=== PATIENT | female | born 1995 ===

== ENCOUNTER 2017-04-26 10:57 | Inpatient (IN) ==
[2017-04-26] MEDS ORDERED: CITRIC ACID/SODIUM CITRATE 30 ML UDCUP PO ONE (11:19)
[2017-04-26] MEDS ORDERED: CLINDAMYCIN INJ 900 MG in PREMIX 1 EACH IV ONE (11:19)
[2017-04-26] MEDS ORDERED: FAMOTIDINE 20 MG/2 ML VIAL IV ONE (11:19)
[2017-04-26] MEDS: LACTATED RINGERS 1,000 ML IV SCH ×2 (11:35→13:42)
[2017-04-26 11:49] LABS: Basophils % 0.3 % (0.0-0.8); Eosinophils % 0.3 % (0.00-10.9); Hematocrit 31.4 VOL% (35.7-47.0); Hemoglobin 10.2 GM/DL (12.0-16.0); Immature Granulocytes % 1.7 %; Lymphocytes # 1.6 10*3/uL (1.4-4.0); Lymphocytes % 27.7 % (21.3-54.2); Mean Corpuscular HGB Conc 32.5 GM/DL (32-36); Mean Corpuscular Hemoglobin 26 PG (27-34); Mean Corpuscular Volume 78.5 FL (87-102); Mean Platelet Volume 9.7 FL (9.6-12.0); Monocytes # 0.6 10*3/uL (0.11-0.8); Monocytes % 10.1 % (1.7-12.7); Neutrophils # 3.5 10*3/uL (1.4-7.4); Neutrophils % 59.9 % (38.7-73.9); Platelet Count 299 T/CUMM (130-400); Red Cell Distribution Width 16.8 % (9.3-17.3); White Blood Count 5.8 T/CUMM (4-12)
[2017-04-26 12:22] LABS: Bilirubin,Total 0.5 MG/DL (0.2-1.0); Calcium 8.5 MG/DL (8.5-10.1); Osmolality,Calculated 272.7 MOS/KG (273-304); Potassium 3.6 MMOL/L (3.5-5.1); Total Protein 7.3 G/DL (6.4-8.3)
[2017-04-26] MEDS ORDERED: OXYTOCIN/LR 30 UNIT/1,000 ML BAG IV ONE (12:23)
[2017-04-26] MEDS ORDERED: OXYTOCIN 10 UNIT/ML VIAL IM ONE (12:23)
[2017-04-26 14:03] LABS: HIV Antigen/Antibody Result Nonreactive (Nonreactive); Hepatitis B Surface Ag Quant 0.44 Index; Hepatitis B Surface Ag Result Negative (Negative)
[2017-04-26 17:17] LABS: Cord Arterial Blood HCO3 21.3 MMOL/L
[2017-04-26 17:18] LABS: Cord Venous Blood HCO3 24.4 MMOL/L; Cord Venous Blood PCO2 43.9 MMHG; Cord Venous Blood PO2 13.8 MMHG
[2017-04-26] MEDS ORDERED: fentaNYL 100 MCG/2 ML VIAL ONE (17:31)
[2017-04-26] MEDS ORDERED: MORPHINE 10 MG/10 ML VIAL ONE (17:32)
[2017-04-26 17:46] LABS: Apearance,Urine CLEAR (Clear); Bilirubin,Urine Negative (Negative); Blood, Urine Negative (Negative); Glucose,Urine (UA) Negative (Negative); Ketones,Urine 20 mg/dL (Negative); Mucus,Urine Occasional /LPF (Occasional); Nitrite,Urine Negative (Negative); Protein,Urine 30 MG/DL; RBC,Urine 2 /HPF (0-4); Squamous Epithelial Cell,Urine Occasional /HPF (0-10); Urine Color Amber (Yellow); Urine Specific Gravity 1.024 (1.001-1.035); WBC,Urine 1 /HPF (0-6)
[2017-04-26] MEDS ORDERED: OXYTOCIN/LR 20 UNIT/1,000 ML BAG IV ONE ×2 (19:55→23:47)
[2017-04-26] MEDS ORDERED: SIMETHICONE CHEW 80 MG TABLET PO PRN (23:47)
[2017-04-26] MEDS ORDERED: RHO(D) IMMUNE GLOBULIN 300 MCG SYRINGE IM ONE (23:47)
[2017-04-26] MEDS ORDERED: LACTATED RINGERS 1,000 ML IV SCH (23:47)
[2017-04-26] MEDS ORDERED: ONDANSETRON 4 MG/2 ML VIAL IV PRN (23:47)
[2017-04-26] MEDS ORDERED: MAGNESIUM HYDROXIDE SUSP 30 ML UDCUP PO PRN (23:47)
[2017-04-26] MEDS ORDERED: IBUPROFEN 800 MG TABLET PO PRN (23:47)
[2017-04-26] MEDS ORDERED: ACETAMINOPHEN 325 MG TABLET PO PRN (23:47)
[2017-04-27] MEDS: ceFAZolin 1,000 MG in SYRINGE 1 EACH IV SCH ×2 (01:00→09:32)
[2017-04-27] MEDS: OSELTAMIVIR 75 MG CAPSULE PO SCH ×3 (03:24→20:00)
[2017-04-27 04:20] LABS: Basophils % 0.2 % (0.0-0.8); Eosinophils % 0.3 % (0.00-10.9); Hematocrit 26.9 VOL% (35.7-47.0); Hemoglobin 8.3 GM/DL (12.0-16.0); Immature Granulocytes % 1.1 %; Immature Granulocytes Absolute 0.07 #; Lymphocytes # 1.8 10*3/uL (1.4-4.0); Lymphocytes % 27.9 % (21.3-54.2); Mean Corpuscular HGB Conc 30.9 GM/DL (32-36); Mean Corpuscular Hemoglobin 25 PG (27-34); Mean Corpuscular Volume 80.5 FL (87-102); Mean Platelet Volume 9.6 FL (9.6-12.0); Monocytes # 0.6 10*3/uL (0.11-0.8); Monocytes % 8.6 % (1.7-12.7); Neutrophils % 61.9 % (38.7-73.9); Platelet Count 203 T/CUMM (130-400); Red Blood Count 3.34 MC/CUMM (3.8-5.5); Red Cell Distribution Width 16.6 % (9.3-17.3); White Blood Count 6.4 T/CUMM (4-12)
[2017-04-27] MEDS: DOCUSATE SODIUM 100 MG CAPSULE PO SCH ×3 (07:54→20:00)
[2017-04-27 08:07] VITALS: BP 109/48
[2017-04-27] MEDS: MULTIVITAMIN (PRENATAL) TABLET PO SCH (09:34)
[2017-04-27] MEDS: FERROUS SULFATE 325 MG TABLET PO SCH (20:00)
[2017-04-28] MEDS: DOCUSATE SODIUM 100 MG CAPSULE PO SCH (07:39)
[2017-04-28] MEDS: MULTIVITAMIN (PRENATAL) TABLET PO SCH (07:39)
[2017-04-28] MEDS: FERROUS SULFATE 325 MG TABLET PO SCH (07:39)
[2017-04-28] MEDS: OSELTAMIVIR 75 MG CAPSULE PO SCH (09:03)
[2017-04-28] MEDS ORDERED: DIPH/TET/ACEL PERT BOOSTER VACCINE 0.5 ML VIAL IM ONE (10:03)
[2017-04-28] MEDS ORDERED: MEASLES/MUMPS/RUBELLA VACCINE 0.5 ML VIAL SUBCUT ONE (10:04)
== END 2017-04-28 12:45 | disposition home or self-care (01) | DRG 766 ==
LOC: N.LDOUT 10:57 → N.LD 11:04 → N.OB 04-27 01:40
PROVIDERS: ADMIT Obstetrics & Gynecology; ATTEND Obstetrics & Gynecology
PROC: LDCSECT (ICD-10-PCS; 2017-04-26 16:00)

== ENCOUNTER 2019-07-05 23:15 | Inpatient (IN) ==
[2019-07-05] MEDS ORDERED: CITRIC ACID/SODIUM CITRATE 30 ML UDCUP PO PRN (23:25)
[2019-07-05] MEDS ORDERED: CLINDAMYCIN INJ 900 MG in PREMIX 1 EACH IV PRN (23:31)
[2019-07-05] MEDS ORDERED: FAMOTIDINE 20 MG/2 ML VIAL IV PRN (23:31)
[2019-07-05] MEDS ORDERED: OXYTOCIN 10 UNIT/ML VIAL IM PRN (23:35)
[2019-07-05 23:43] LABS: Basophils % 0.2 % (0.0-0.8); Eosinophils # 0.1 10*3/uL (0.0-0.87); Eosinophils % 0.6 % (0.00-10.9); Hematocrit 31.4 VOL% (35.7-47.0); Hemoglobin 9.8 GM/DL (12.0-16.0); Immature Granulocytes % 1.1 %; Immature Granulocytes Absolute 0.09 #; Lymphocytes # 2.7 10*3/uL (1.4-4.0); Mean Corpuscular HGB Conc 31.2 GM/DL (32-36); Mean Corpuscular Volume 78.7 FL (87-102); Mean Platelet Volume 9.1 FL (9.6-12.0); Monocytes % 7.6 % (1.7-12.7); Neutrophils % 58.5 % (38.7-73.9); Platelet Count 325 T/CUMM (130-400); Red Blood Count 3.99 MC/CUMM (3.8-5.5); Red Cell Distribution Width 14.5 % (9.3-17.3); White Blood Count 8.4 T/CUMM (4-12)
[2019-07-05] MEDS: LACTATED RINGERS 1,000 ML IV SCH (23:59)
[2019-07-06] MEDS ORDERED: PROMETHAZINE 25 MG/1 ML VIAL IM PRN (00:22)
[2019-07-06] MEDS: MEPERIDINE 50 MG/1 ML VIAL IV PRN ×2 (00:32→04:02)
[2019-07-06] MEDS: LACTATED RINGERS 1,000 ML IV SCH (06:31)
[2019-07-06] MEDS ORDERED: ROPIVACAINE 0.5% 30 ML VIAL ONE (06:35)
[2019-07-06] MEDS ORDERED: PHENYLEPHRINE 1 MG/10 ML SYRINGE IV ONE (06:35)
[2019-07-06] MEDS ORDERED: MORPHINE 10 MG/10 ML VIAL ONE (06:36)
[2019-07-06] MEDS ORDERED: BUPIVACAINE SPINAL 0.75% 2 ML AMP SPINAL ONE (06:36)
[2019-07-06] MEDS ORDERED: fentaNYL 100 MCG/2 ML VIAL ONE (06:36)
[2019-07-06] MEDS ORDERED: DEXAMETHASONE 4 MG/1 ML VIAL ONE (06:36)
[2019-07-06] MEDS ORDERED: ONDANSETRON 4 MG/2 ML VIAL ONE (06:36)
[2019-07-06] MEDS ORDERED: KETOROLAC 60 MG/2 ML VIAL IM ONE (06:37)
[2019-07-06] MEDS: OXYTOCIN/LR 30 UNIT/1,000 ML BAG IV PRN ×2 (09:54→11:36)
[2019-07-06 10:09] LABS: Cord Arterial Blood HCO3 21.7 MMOL/L
[2019-07-06 10:10] LABS: Cord Venous Blood HCO3 24.9 MMOL/L; Cord Venous Blood PO2 30.2 MMHG
[2019-07-06 10:16] LABS: Apearance,Urine CLEAR (Clear); Bilirubin,Urine Negative (Negative); Blood, Urine Negative (Negative); Glucose,Urine (UA) 50 mg/dL (Negative); Ketones,Urine Negative (Negative); Mucus,Urine Many /LPF (Occasional); Nitrite,Urine Negative (Negative); Protein,Urine 30 MG/DL; Squamous Epithelial Cell,Urine Occasional /HPF (0-10); Urine Color Dark Yellow (Yellow); Urine Specific Gravity 1.033 (1.001-1.035); WBC,Urine 1 /HPF (0-6)
[2019-07-06] MEDS ORDERED: SIMETHICONE CHEW 80 MG TABLET PO PRN (10:27)
[2019-07-06] MEDS ORDERED: ONDANSETRON 4 MG/2 ML VIAL IV PRN (10:27)
[2019-07-06] MEDS ORDERED: ACETAMINOPHEN 325 MG TABLET PO PRN (10:27)
[2019-07-06] MEDS ORDERED: RHO(D) IMMUNE GLOBULIN 300 MCG SYRINGE IM ONE (10:27)
[2019-07-06] MEDS ORDERED: OXYTOCIN/LR 20 UNIT/1,000 ML BAG IV ONE (10:27)
[2019-07-06] MEDS ORDERED: LACTATED RINGERS 1,000 ML IV SCH (10:30)
[2019-07-06] MEDS ORDERED: HYDROmorphone 2 MG/1 ML VIAL IV PRN (13:03)
[2019-07-06] MEDS ORDERED: hydrOXYzine HCL 25 MG/1 ML VIAL IM PRN (13:03)
[2019-07-06] MEDS ORDERED: diphenhydrAMINE 50 MG/1 ML VIAL IV PRN (13:03)
[2019-07-06] MEDS: KETOROLAC 30 MG/1 ML VIAL IV SCH (17:32)
[2019-07-06] MEDS: CLINDAMYCIN INJ 900 MG in PREMIX 1 EACH IV SCH (17:34)
[2019-07-06 18:17] LABS: Basophils % 0.2 % (0.0-0.8); Hematocrit 29.1 VOL% (35.7-47.0); Hemoglobin 8.9 GM/DL (12.0-16.0); Immature Granulocytes % 0.8 %; Lymphocytes # 1.7 10*3/uL (1.4-4.0); Lymphocytes % 13.4 % (21.3-54.2); Mean Corpuscular HGB Conc 30.6 GM/DL (32-36); Mean Corpuscular Volume 80.4 FL (87-102); Mean Platelet Volume 9.4 FL (9.6-12.0); Monocytes % 3.3 % (1.7-12.7); Neutrophils % 82.3 % (38.7-73.9); Platelet Count 302 T/CUMM (130-400); Red Blood Count 3.62 MC/CUMM (3.8-5.5); Red Cell Distribution Width 14.2 % (9.3-17.3); White Blood Count 12.3 T/CUMM (4-12)
[2019-07-06] MEDS: FERROUS SULFATE 325 MG TABLET PO SCH (20:55)
[2019-07-06] MEDS: DOCUSATE SODIUM 100 MG CAPSULE PO SCH (20:55)
[2019-07-07] MEDS: CLINDAMYCIN INJ 900 MG in PREMIX 1 EACH IV SCH (02:17)
[2019-07-07] MEDS: KETOROLAC 30 MG/1 ML VIAL IV SCH ×2 (04:30)
[2019-07-07 04:53] LABS: Eosinophils % 0.3 % (0.00-10.9); Lymphocytes % 32.3 % (21.3-54.2); Red Cell Distribution Width 14.6 % (9.3-17.3)
[2019-07-07 05:03] LABS: Basophils % 0.2 % (0.0-0.8); Hematocrit 25.1 VOL% (35.7-47.0); Immature Granulocytes % 0.8 %; Immature Granulocytes Absolute 0.09 #; Lymphocytes # 3.8 10*3/uL (1.4-4.0); Mean Corpuscular HGB Conc 31.9 GM/DL (32-36); Mean Platelet Volume 9.8 FL (9.6-12.0); Monocytes % 9.1 % (1.7-12.7); Neutrophils % 57.3 % (38.7-73.9); Platelet Count 298 T/CUMM (130-400); Red Blood Count 3.22 MC/CUMM (3.8-5.5); White Blood Count 11.7 T/CUMM (4-12)
[2019-07-07] MEDS: METOCLOPRAMIDE 10 MG TABLET PO SCH ×2 (09:06→16:07)
[2019-07-07] MEDS: FERROUS SULFATE 325 MG TABLET PO SCH ×2 (09:06→20:32)
[2019-07-07] MEDS: DOCUSATE SODIUM 100 MG CAPSULE PO SCH ×2 (09:07→20:32)
[2019-07-07] MEDS: MAGNESIUM HYDROXIDE SUSP 30 ML UDCUP PO PRN ×2 (09:07→20:32)
[2019-07-07] MEDS: IBUPROFEN 800 MG TABLET PO PRN (12:34)
[2019-07-07] MEDS: MULTIVITAMIN (PRENATAL) TABLET PO SCH (18:56)
[2019-07-08] MEDS: IBUPROFEN 800 MG TABLET PO PRN (03:04)
[2019-07-08] MEDS: METOCLOPRAMIDE 10 MG TABLET PO SCH (03:04)
[2019-07-08 07:30] VITALS: BP 101/59
[2019-07-08] MEDS: MAGNESIUM HYDROXIDE SUSP 30 ML UDCUP PO PRN (09:58)
[2019-07-08] MEDS: MULTIVITAMIN (PRENATAL) TABLET PO SCH (09:58)
[2019-07-08] MEDS: FERROUS SULFATE 325 MG TABLET PO SCH (09:58)
[2019-07-08] MEDS: DOCUSATE SODIUM 100 MG CAPSULE PO SCH (09:59)
== END 2019-07-08 13:05 | disposition home or self-care (01) | DRG 788 ==
LOC: N.LDOUT 23:15 → N.LD 23:18 → N.OB 07-06 12:56
PROVIDERS: ADMIT Obstetrics & Gynecology; ATTEND Obstetrics & Gynecology
PROC: LDCSECT (ICD-10-PCS; 2019-07-06 08:00)

== ENCOUNTER 2019-07-11 14:05 | Observation (INO) ==
[2019-07-11] MEDS ORDERED: MORPHINE 4 MG/1 ML VIAL IV ONE (14:27)
[2019-07-11] MEDS ORDERED: ONDANSETRON 4 MG/2 ML VIAL IV ONE (14:27)
[2019-07-11 15:12] LABS: INR 0.9; PT Patient Result 10.1 SECS (9.6-12.2)
[2019-07-11 15:17] LABS: Alanine Aminotransferase 17 U/L (13-56); Albumin 2.6 G/DL (3.4-5.0); Alkaline Phosphatase 158 U/L (45-117); Aspartate Amino Transferase 22 U/L (0-37); Bilirubin,Total < 0.39 MG/DL (0.2-1.0); Blood Urea Nitrogen 9 MG/DL (7-18); Calcium 8.2 MG/DL (8.5-10.1); Estimated Glom Filtration Rate 135 ML/MIN; Glucose 90 MG/DL (74-106); Osmolality,Calculated 275.5 MOS/KG (273-304); Total Protein 6.6 G/DL (6.4-8.3)
[2019-07-11 16:01] LABS: Basophils % 0.2 % (0.0-0.8); Eosinophils # 0.1 10*3/uL (0.0-0.87); Eosinophils % 1.2 % (0.00-10.9); Hematocrit 28.7 VOL% (35.7-47.0); Hemoglobin 8.7 GM/DL (12.0-16.0); Immature Granulocytes % 0.7 %; Immature Granulocytes Absolute 0.06 #; Lymphocytes # 1.9 10*3/uL (1.4-4.0); Lymphocytes % 22.4 % (21.3-54.2); Mean Corpuscular HGB Conc 30.3 GM/DL (32-36); Mean Corpuscular Volume 80.8 FL (87-102); Neutrophils % 68.5 % (38.7-73.9); Platelet Count 352 T/CUMM (130-400); Red Blood Count 3.55 MC/CUMM (3.8-5.5); White Blood Count 8.6 T/CUMM (4-12)
[2019-07-11 16:27] LABS: Amorphous Crystals,Urine Occasional /HPF (Few); Apearance,Urine Slightly Hazy (Clear); Bilirubin,Urine Negative (Negative); Blood, Urine Moderate mg/dL (Negative); Glucose,Urine (UA) Negative (Negative); Ketones,Urine Negative (Negative); Mucus,Urine Occasional /LPF (Occasional); Nitrite,Urine Negative (Negative); Protein,Urine Negative; RBC,Urine 8 /HPF (0-4); Squamous Epithelial Cell,Urine Occasional /HPF (0-10); Urine Color Yellow (Yellow); Urine Specific Gravity 1.025 (1.001-1.035); Urine Urobilinogen < 2.0 EU/DL (0.2-1.0); WBC,Urine 1 /HPF (0-6)
[2019-07-11] MEDS ORDERED: ceFAZolin 2,000 MG in SODIUM CHLORIDE 0.9% 100 ML IV STA (16:32)
[2019-07-11] MEDS ORDERED: CLINDAMYCIN INJ 600 MG in PREMIX 1 EACH IV STA (16:34)
[2019-07-11] MEDS ORDERED: BISACODYL 10 MG SUPP RECTAL PRN (16:37)
[2019-07-11] MEDS ORDERED: MAGNESIUM HYDROXIDE SUSP 30 ML UDCUP PO PRN (16:37)
[2019-07-11] MEDS ORDERED: ACETAMINOPHEN 325 MG TABLET PO PRN (16:37)
[2019-07-11] MEDS ORDERED: IBUPROFEN 800 MG TABLET PO PRN (16:37)
[2019-07-11] MEDS ORDERED: MEPERIDINE 25 MG/1 ML VIAL IV PRN (16:37)
[2019-07-11] MEDS ORDERED: ONDANSETRON 4 MG/2 ML VIAL IV PRN (16:37)
[2019-07-11] MEDS ORDERED: PROMETHAZINE 25 MG/1 ML VIAL IM PRN (16:37)
[2019-07-11] MEDS: CLINDAMYCIN INJ 600 MG in PREMIX 1 EACH IV SCH (17:00)
[2019-07-11] MEDS: LACTATED RINGERS 1,000 ML IV SCH (18:13)
[2019-07-12] MEDS: DOCUSATE SODIUM 100 MG CAPSULE PO SCH ×2 (00:15→08:20)
[2019-07-12] MEDS: CLINDAMYCIN INJ 600 MG in PREMIX 1 EACH IV SCH ×2 (00:44→08:20)
[2019-07-12 06:26] LABS: Basophils % 0.3 % (0.0-0.8); Eosinophils # 0.1 10*3/uL (0.0-0.87); Eosinophils % 1.8 % (0.00-10.9); Hematocrit 31.1 VOL% (35.7-47.0); Hemoglobin 9.4 GM/DL (12.0-16.0); Immature Granulocytes % 1.2 %; Immature Granulocytes Absolute 0.08 #; Lymphocytes # 2.2 10*3/uL (1.4-4.0); Lymphocytes % 32.8 % (21.3-54.2); Mean Corpuscular HGB Conc 30.2 GM/DL (32-36); Mean Corpuscular Volume 80.6 FL (87-102); Mean Platelet Volume 8.8 FL (9.6-12.0); Monocytes % 9.3 % (1.7-12.7); Neutrophils % 54.6 % (38.7-73.9); Platelet Count 335 T/CUMM (130-400); Red Blood Count 3.86 MC/CUMM (3.8-5.5); Red Cell Distribution Width 14.9 % (9.3-17.3); White Blood Count 6.6 T/CUMM (4-12)
[2019-07-12 06:45] LABS: Alanine Aminotransferase 13 U/L (13-56); Albumin 2.3 G/DL (3.4-5.0); Alkaline Phosphatase 150 U/L (45-117); Aspartate Amino Transferase 10 U/L (0-37); Bilirubin,Total < 0.39 MG/DL (0.2-1.0); Blood Urea Nitrogen 9 MG/DL (7-18); Calcium 8.1 MG/DL (8.5-10.1); Estimated Glom Filtration Rate 136 ML/MIN; Glucose 91 MG/DL (74-106); Osmolality,Calculated 277.4 MOS/KG (273-304); Total Protein 6.3 G/DL (6.4-8.3)
[2019-07-12 07:28] VITALS: BP 141/75
[2019-07-12] MEDS: LACTATED RINGERS 1,000 ML IV SCH (10:18)
== END 2019-07-12 13:55 | disposition home or self-care (01) ==
LOC: N.ED 14:05 → N.EDINP 14:05 → N.OB 17:17
PROVIDERS: ADMIT Obstetrics & Gynecology; ATTEND Obstetrics & Gynecology